=== PATIENT | female | born 2000 | race Caucasian/White ===

== ENCOUNTER 2024-03-17 18:58 | Emergency (ER) | payer BC ==
[~2024-03-17] VITALS: Ht 172.7 cm; Wt 80.5 kg
[2024-03-17 19:02] VITALS: TEMP 97.9
[2024-03-17] MEDS ORDERED: Ondansetron 4 MG/2 ML VIAL IV ONE (20:30)
[2024-03-17] MEDS ORDERED: NS 1,000 ML IV ONE (20:30)
[2024-03-17] MEDS ORDERED: Morphine 4 MG/ML VIAL IV PRN (20:30)
[2024-03-17 20:33] LABS: BASO % 0.4 % (0.0-2.0); EOS # 0.1 K/mm3 (0.0-0.7); EOS % 1.4 % (0.0-4.0); GRAN # 3.5 K/mm3 (1.4-6.5); HEMATOCRIT 42.5 % (37.0-47.0); HEMOGLOBIN 14.2 g/dl (12.5-16.0); LYMPH % 42.8 % (20.0-51.0); MEAN CELL VOLUME 93 fl (80.0-100.0); MEAN CORPUSCULAR HEMOGLOBIN 31 pg (27-31); MEAN CORPUSCULAR HGB CONC 33 g/dl (33.0-37.0); MEAN PLATELET VOLUME 10.3 fl (7.4-10.4); MONO # 0.4 K/mm3 (0.1-0.6); MONO % 5.3 % (1.7-9.3); PLATELET COUNT 198 K/mm3 (130-400); RED BLOOD COUNT 4.59 M/mm3 (4.10-5.30); REDCELL DISTRIBUTION WIDTH-CV 11.9 % (11.5-14.5)
[2024-03-17 20:50] LABS: BILIRUBIN,TOTAL 0.3 mg/dL (0.2-1.2); CALCIUM 8.6 mg/dL (8.4-10.2); CREATININE, serum 0.78 mg/dL (0.57-1.11); POTASSIUM 3.9 mEq/L (3.5-4.5); TOTAL PROTEIN 7.3 g/dl (6.2-8.1)
[2024-03-17 20:53] LABS: URINE APPEARANCE CLEAR (CLEAR/HAZY); URINE BLOOD NEGATIVE (NEGATIVE); URINE COLOR YELLOW (YELLOW); URINE GLUCOSE NEGATIVE (NEGATIVE); URINE KETONE TRACE (NEGATIVE); URINE NITRATE NEGATIVE (NEGATIVE); URINE PROTEIN(semi-quant) NEGATIVE (NEGATIVE)
[2024-03-17 21:16] LABS: COLLECTION METHOD CLEAN CATCH
[2024-03-17] MEDS ORDERED: Morphine 4 MG/ML VIAL IV ONE (21:30)
[2024-03-17] MEDS ORDERED: Iohexol 300 - 100 ML VIAL IV ONE (23:12)
[2024-03-17] MEDS ORDERED: NS 50 ML IV SCH (23:13)
[2024-03-17] MEDS ORDERED: diphenhydrAMINE 50 MG/ML 1 ML VIAL IV ONE (23:45)
[2024-03-17] MEDS ORDERED: Home HYDROcodone/Acetaminophen 5/325 MG #4 TABS/PACK PO ONE (23:45)
[2024-03-17] MEDS ORDERED: NORCO 325 MG-51 TAB PO (23:47)
[2024-03-18 00:40] VITALS: BP 119/90; PULSE 85
[2024-03-18] MEDS ORDERED: NORCO 325 MG-51 TAB PO (13:30)
== END 2024-03-18 00:45 | disposition home or self-care (01) ==
LOC: COL.ER 18:58
PROVIDERS: Personal Emergency Response Attendant
DX: R10.814 Left lower quadrant abdominal tenderness (principal); R82.4 Acetonuria; Z87.42 Personal history of other diseases of the female genital tract
CPT/HCPCS: J1200; J2270; J2405; J7030; Q9967